=== PATIENT | female | born 1950 | race Caucasian/White ===

== ENCOUNTER 2018-10-02 07:01 | Day surgery (SDC) | payer MEDICARE, MEDICAID ==
[2018-10-01 11:54] LABS: Hematocrit 42.5 % (36.0-46.0); Hemoglobin 14.2 g/dL (12.2-16.2); Mean Corpuscular Hemoglobin 28.9 pg (28.0-32.0); Mean Corpuscular Hgb Conc. 33.3 g/dL (32.0-36.0); Mean Corpuscular Volume 86.7 fL (80.0-100.0); Platelet Count (auto) 264 10^3/uL (140-450); Red Cell Distribution Width 15.6 % (11.8-14.3); White Blood Cell 5.1 10^3/uL (4.4-10.8)
[2018-10-01 11:57] LABS: Band Neutrophils % (manual) 0; Basophils % (manual) 0 (0.0-2.0); Blast Cells 0; Metamyelocytes % 0; Myelocytes % 0; Promyelocytes % 0; Reactive Lymphocytes 0
[2018-10-01 12:17] LABS: Albumin 3.8 g/dL (3.4-5.0); Calcium 9.7 mg/dL (8.5-10.1); Potassium 4.4 mmol/L (3.5-5.1)
[2018-10-01 12:20] LABS: BUN/Creatinine Ratio 17.8; Bilirubin, Total 0.4 mg/dL (0.2-1.0); Total Protein 8.2 g/dL (6.4-8.2)
[2018-10-01 12:25] LABS: Urine Bacteria NONE SEEN /hpf (None Seen); Urine Blood Negative /uL (Negative); Urine Specific Gravity 1.012 (1.001-1.035); Urine WBC 1 /hpf (0 - 5)
[2018-10-01 12:47] LABS: Partial Thromboplastin Time 25.4 sec (23.64-32.05)
[2018-10-01 14:14] LABS: INR 0.91 (0.9-1.15)
[2018-10-01 15:13] LABS: Eosinophils % (manual) 7 (0-7); Lymphocytes % (manual) 62 (10.0-50.0); Monocytes % (manual) 7 (0-12)
[~2018-10-02] VITALS: Ht 157.5 cm; Wt 78.5 kg
[~2018-10-02 07:01] MED LIST: OMEP20TA PO
[2018-10-02] MEDS ORDERED: CLINDAMYCIN 600MG IV 50 ML IV ONE (07:41)
[2018-10-02] MEDS ORDERED: MIDAZOLAM HCL 1MG/1ML-2 ML VIAL ONE (08:00)
[2018-10-02] MEDS ORDERED: fentaNYL CITRATE 100 MCG/2 ML VL ONE (08:00)
[2018-10-02] MEDS ORDERED: METOCLOPRAMIDE HCL 5MG/ml INJ 2ml VIAL IV PRN (08:30)
[2018-10-02] MEDS ORDERED: ONDANSETRON HCL 4 MG/2 ML VIAL IV PRN (08:30)
[2018-10-02] MEDS ORDERED: fentaNYL CITRATE 100 MCG/2 ML VL IV PRN (08:30)
[2018-10-02] MEDS ORDERED: KETOROLAC TROMETH 30 MG/ML 1ML VIAL ONE (08:41)
[2018-10-02] MEDS ORDERED: MORPHINE SULF(PF) 0.5MG/ML 10ML VIAL ONE (08:46)
[2018-10-02] MEDS ORDERED: ROCURONIUM 10MG/ML 10ML VIAL IV ONE (08:58)
[2018-10-02] MEDS ORDERED: LIDOCAINE 1% HCL (LOCAL ANESTH.) INJ 20ML MDV ONE (09:01)
[2018-10-02] MEDS ORDERED: SUCCINYLCHOLINE CHLORIDE 20 MG/ML 10ML VIAL IV ONE (09:02)
[2018-10-02] MEDS ORDERED: LIDOCAINE 2%HCL (LOCAL ANESTH.) INJ 20ML MDV ONE (09:03)
[2018-10-02] MEDS ORDERED: HYDROmorphone HCL 2 MG/ML VL ONE ×2 (09:37→12:27)
[2018-10-02] MEDS ORDERED: ACETAMINOPHEN IV 100 ML IV ONE (10:48)
[2018-10-02] MEDS: HYDROmorphone HCL 2 MG/ML VL IV PRN ×2 (12:30→12:44)
[2018-10-02 13:08] VITALS: BP 116/59
== END 2018-10-02 13:20 | disposition home or self-care (01) ==
LOC: SUR 07:01
PROVIDERS: ATTEND Orthopaedic Surgery
DX: M67.262 Synovial hypertrophy, not elsewhere classified, left lower leg (principal); M67.52 Plica syndrome, left knee; M71.22 Synovial cyst of popliteal space [Baker], left knee; K21.9 Gastro-esophageal reflux disease without esophagitis; E66.3 Overweight; F32.9 Major depressive disorder, single episode, unspecified; Z88.1 Allergy status to other antibiotic agents; Z79.899 Other long term (current) drug therapy; Z87.59 Personal history of other complications of pregnancy, childbirth and the puerperium; Z90.49 Acquired absence of other specified parts of digestive tract; Z90.710 Acquired absence of both cervix and uterus; Z68.31 Body mass index [BMI] 31.0-31.9, adult; Z96.652 Presence of left artificial knee joint; Z98.890 Other specified postprocedural states
CPT/HCPCS: 29875; 36415; 80053; 81001; 85007; 85027; 85610; 85730; 93005; J0131; J0330; J1170; J1885; J2001; J2250; J2270; J3010; J3490